=== PATIENT | male | born 2000 | race Caucasian/White ===

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

== ENCOUNTER 2021-02-18 14:51 | Emergency (ER) | payer MEDICAID, SELFPAY ==
[2021-02-18 14:54] VITALS: BP 153/77; PULSE 104; RESP 18; TEMP 36.9; O2SAT 99
--- NOTE | 2021-02-18 15:11 | W.ED.GENAD ---
Discharge Plan Disposition Patient Disposition: HOME Condition: Stable Discharge Details Clinical Impression: Systemic reaction to hymenoptera sting Primary Care Provider: Jayden Mobley ED Provider: Maxim Wild Home Meds and New Rx's Prescriptions: New epinephrine 0.3 mg/0.3 mL auto-injector 0.3 mg IM ONCE Qty: 1 RF: 0 prednisone 20 mg tablet 40 mg PO DAILY Qty: 8 RF: 0 Discharge Instructions Instructions: Insect Bite or Sting (ED), Anaphylaxis (ED) Additional Instructions: Please take Benadryl 25 mg every 8 hours for the next 2 days. Take prednisone as prescribed. Use epinephrine for severe allergic reaction in the future as prescribed. Please contact your primary care physician to arrange follow-up. Return to the ER for any worsening or new concerning symptoms. Referrals: Jayden Mobley MD [Primary Care Provider] - Discharge Data Discharge Date/Time-TO BE ENTERED AT DEPARTURE: 02/18/21 17:03 Medical Decision Making 1530 -- 20-year-old male here with hymenoptera sting from multiple wasps. He does feel dizzy and has some nausea. No vomiting. He saturating well no respiratory distress. No oropharyngeal swelling. Lungs clear to auscultation. He is mildly tachycardic but normotensive. Plan to give Solu-Medrol 125 mg IV, Benadryl 50 mg IV and IV fluid bolus to treat for systemic allergic reaction. Will monitor for improvement. --Patient reassessed after prolonged ED observation and noted significant improvement. Now asymptomatic. Plan customary discharge instructions reviewed with the patient. HPI General Mode of arrival: ambulatory. Date/Time Provider Initiated Documentation: 02/18/21 15:10. Limitations to Documentation: no limitations. Information obtained by: patient. HPI Narrative: 20-year-old male presents with chief complaint of bee sting. Patient notes he was stung in his face and upper extremities bilaterally as well as the back of his head. He states he was stung about 30 minutes prior to arrival. He has swelling in his left face. He notes he feels a little dizzy and generally unwell. He denies shortness of breath or difficulty swallowing. No oral swelling. He did feel little nauseous but has not vomited. Symptoms moderate with no modifiers. He has not tried antihistamine. He has been stung before and no known severe allergy. Related Data Home Medications Medication Instructions Recorded Confirmed epinephrine 0.3 mg IM ONCE #1 ea 02/18/21 prednisone 40 mg PO DAILY #8 tab 02/18/21 Previous Rx's Medication Instructions Recorded epinephrine 0.3 mg IM ONCE #1 ea 02/18/21 prednisone 40 mg PO DAILY #8 tab 02/18/21 Allergies Allergy/AdvReac Type Severity Reaction Status Date / Time No Known Allergies Allergy Unverified 02/18/21 14:58 General Stated Complaint: Allergic BISI: 3 Review of Systems All systems reviewed & are unremarkable except as noted in HPI and below Constitutional Constitutional: Denies fever(s) ENT Ears, Nose, Mouth, and Throat: Reports as per HPI Respiratory Respiratory: Reports as per HPI [facility] Medical History No significant past medical history Surgical History No significant past surgical history Social History Smoking/Tobacco Use Status: Never Smoking risk assessment performed?: Yes Alcohol Intake: never Drug use: Never Substance use type: does not use Do you feel safe at home: Yes Do you feel safe in your relationship?: Yes Exam Const General: cooperative and no acute distress HENMT Head: normocephalic and atraumatic Face and sinus: face asymmetric and other (Left facial swelling) Mouth: oral mucosae normal, lip normal, tongue normal, oropharynx normal, moist mucous membranes and no drooling Throat: posterior oropharynx normal and uvula midline Eyes Conjunctivae: normal conjunctivae Sclera: normal sclerae Neck Neck: trachea midline and supple Resp Auscultation: clear to auscultation bilaterally, no rales, no rhonchi and no wheezes Cardio Rate: tachycardic Rhythm: regular rhythm Heart Sounds: no murmurs GI Palpation: soft, not firm, no guarding, no masses, not rigid and nontender Skin General skin exam: no rashes or lesions noted Neuro General: patient alert, patient awake, patient oriented x3 and tone normal Extrem General: no edema Psych Appearance: grossly normal Mental Status: mental status grossly normal Speech and Movement: speech and movement normal Course Vital Signs Vital signs: Vital Signs Temperature 36.9 C 02/18/21 14:54 Pulse 104 H 02/18/21 14:54 Respiratory Rate 18 02/18/21 14:54 Blood Pressure 153/77 H 02/18/21 14:54 Pulse Oximetry 99 02/18/21 14:54 Temperature 36.9 C 02/18/21 14:54 Temperature Source Skin 02/18/21 14:54 Pulse 104 H 02/18/21 14:54 Respiratory Rate 18 02/18/21 14:54 Respiratory Effort 02/18/21 14:58 Blood Pressure 153/77 H 02/18/21 14:54 Blood Pressure Position Sitting 02/18/21 14:54 Pulse Oximetry 99 02/18/21 14:54 Oxygen Delivery Method Room Air 02/18/21 14:54 Oxygen Flow Rate 0 02/18/21 14:54 Pain Level 4 02/18/21 14:54
[2021-02-18] MEDS: methylPREDNISolone SUCC 125 MG VIAL IVP (15:26)
[2021-02-18] MEDS: Lactated Ringers 1,000 ML 1000 ML IV (15:26)
[2021-02-18] MEDS: diphenhydrAMINE 50 MG/ML VIAL IVP (15:26)
== END 2021-02-18 17:03 | disposition home or self-care (01) ==
PROVIDERS: Emergency Provider Student in an Organized Health Care Education/Training Program; PCP Internal Medicine
DX: T63.451A Toxic effect of venom of hornets, accidental (unintentional), initial encounter (principal); R42 Dizziness and giddiness; R11.0 Nausea; R22.0 Localized swelling, mass and lump, head
CPT/HCPCS: 96361; 96374; 96375; 99284; J1200; J2930

== ENCOUNTER 2021-06-23 14:04 | Outpatient (REF) | payer MEDICAID, SELFPAY ==
[2021-06-23 14:36] LABS: Abs Immature Grans 0.01 10^3/uL (0.0-0.06); Absolute Basophil Count 0.04 10^3/uL (0.0-0.2); Absolute Eosinophil Count 0.15 10^3/uL (0.0-0.7); Absolute Lymphocyte Count 2.15 10^3/uL (1.2-3.4); Absolute Monocyte Count 0.55 10^3/uL (0.1-0.8); Absolute Neutrophil Count 3.49 10^3/uL (1.2-6.7); Basophils % 0.6; Eosinophils % 2.3; HCT 46.8 % (40.0-50.0); HGB 16.1 g/dL (13.5-17.5); Immature Grans % 0.2; Lymphocytes % 33.6; MCHC 34.4 % (32.0-36.0); MCV 84.2 fL (80-95); MPV 11.8 fL (8.0-11.0); Monocytes % 8.6; Neutrophils % 54.7; Nucleated RBC 0 %; Platelet Count 229 10^3/uL (130-400); RBC 5.56 10^6/uL (4.36-5.78); RDW 12.2 % (11.8-14.1); RDW-SD 37.3 fL; WBC 6.39 10^3/uL (4.4-10.8)
[2021-06-23 15:14] LABS: Anion Gap 8.2 mmol/L (3-11); BUN 16 mg/dL (7-18); CO2 27.8 mmol/L (21.0-32.0); CREATININE 0.9 mg/dL (0.70-1.30); Calcium 9.8 mg/dL (8.5-10.1); Chloride 102 mmol/L (98-107); Glucose 101 mg/dL (74-106); Potassium 4.2 mmol/L (3.5-5.1); Sodium 138 mmol/L (136-145); Vitamin B12 718 pg/mL (193-986)
[2021-06-23 16:12] LABS: FREE T4 0.92 ng/dL (0.78-1.34)
== END 2021-06-23 14:05 | disposition home or self-care (01) ==
LOC: NCHCN 14:04
PROVIDERS: PCP Internal Medicine; Visit Provider Nurse Practitioner Family
DX: K30 Functional dyspepsia (principal); R05.8 Other specified cough; F41.8 Other specified anxiety disorders; R07.9 Chest pain, unspecified
CPT/HCPCS: 80048; 82607; 84439; 84443; 85025

== ENCOUNTER 2021-08-26 01:05 | Outpatient (RCR) | payer MEDICAID, SELFPAY ==
--- NOTE | 2021-08-26 16:00 | HOLTER_ITS ---
APPROVED REPORT Conclusion This is a 48-hour Holter monitor ordered for dizziness Predominant rhythm was sinus with an average heart rate of 81. Minimum was 53, maximum 137 A total of 28 isolated PVCs were seen There were 4 isolated atrial premature beats There was no atrial fibrillation, no high-grade AV block, no pauses greater than 3 seconds Patient symptoms of chest pain and shortness of breath were reported but not timed, unable to correla te
== END 2021-09-08 23:59 | disposition home or self-care (01) ==
LOC: RT 01:05
PROVIDERS: PCP Internal Medicine; Visit Provider Nurse Practitioner Family
DX: R42 Dizziness and giddiness (principal)
CPT/HCPCS: 93225; 93226

== ENCOUNTER 2021-09-22 08:20 | Outpatient (REF) | payer MEDICAID, SELFPAY ==
[2021-09-22 17:50] LABS: TSH (W/Ref FT4) 1.91 uIU/mL (0.52-4.13)
== END 2021-09-22 08:21 | disposition home or self-care (01) ==
LOC: NCHCN 08:20
PROVIDERS: PCP Internal Medicine; Visit Provider Nurse Practitioner Family
DX: E03.9 Hypothyroidism, unspecified (principal); R03.0 Elevated blood-pressure reading, without diagnosis of hypertension; R42 Dizziness and giddiness
CPT/HCPCS: 84443

== ENCOUNTER 2021-10-26 01:21 | Outpatient (CLI) | payer MEDICAID, SELFPAY ==
--- NOTE | 2021-10-26 07:30 | DI.US_ITS ---
APPROVED REPORT EXAM: Comprehensive 2D, Doppler, and color-flow Echocardiogram Patient Location: Out-Patient Replacer: Gloria Adams RDCS (AE) Indications: Dizziness, Systolic heart murmur Other Information Study Quality: Adequate Conclusion Normal left ventricular wall thickness and chamber size. Estimated ejection fraction is 55 to 60%. Wall motion is normal Normal right ventricular size and systolic function Both atria are normal in size There is no structural or hemodynamically significant valvular disease Normal estimated right ventricular systolic pressure, 14 mmHg Wall motion Left Ventricle The left ventricle is normal size. The left ventricular systolic function is normal. The left ventric ular ejection fraction is within the normal range. There is normal left ventricular wall thickness. T here is normal LV segmental wall motion. There is no ventricular septal defect visualized. LVEF is 58 %. Right Ventricle The right ventricle is normal size. The right ventricular systolic function is normal. The RVSP is 13 .9 mmHg. Atria The left atrium size is normal. The right atrium size is normal. The interatrial septum is intact wit h no evidence for an atrial septal defect. Aortic Valve The aortic valve is normal in structure. Aortic valve is trileaflet. There is no aortic valvular sten osis. No aortic regurgitation is present. Mitral Valve The mitral valve is normal in structure. No evidence of mitral valve stenosis. Trace mitral regurgita tion. Tricuspid Valve The tricuspid valve is normal in structure. There is no tricuspid valve stenosis. Trace to mild tricu spid regurgitation. Pulmonic Valve The pulmonary valve is normal in structure. There is no pulmonic valvular stenosis. Mild pulmonic reg urgitation. Great Vessels The aortic root is normal in size. The ascending aorta is normal in size. Aortic arch is normal in ca liber. IVC is normal in size and collapses >50% with inspiration. Pericardium There is no pericardial effusion. 2D Dimensions IVSD d PLAX 1.02 cm M: 0.6-1.2 LV Vol A2C d MOD 136.5 mL LVPW d PLAX 1.04 cm M: 0.6 - 1.2 LV Vol A4C d MOD 116.6 mL LVID d PLAX 5.20 cm M: 4.2 - 5.8 LA vol/ BSA A4C s A-L 16.7 mL/m2 LVDs 3.25 cm M: 2.5 - 4.0 LA Area A4C s MOD 13.51 cm2 Ao Root d 2.61 cm M: 3.1 - 3.7 LV EF A4C MOD 59.5 % RA Area A4C 11.29 cm2 LV EF A2C MOD 57.9 % RA Vol/ BSA A4C s A-L 13.5 mL/m2 LV EF Biplane MOD 57.3 % Ao Asc Diam d 2.33 cm M: 2.6 - 3.4 SV 72.68 mL LV EF Teichholz 66.5 % SV Index 37.15 mL/m2 LVEF (Morales's) 57.34 % M: 52 - 72 LV Volume 95.78 mL M: 62 - 150 LV Volume Index 49.11 mL/m2 M: 34 - 74 LV Vol Biplane MOD 126.8 mL FS 37.00 % M-Mode TAPSE 1.92 cm (M/F) >1.7 LV Diastology MV E' medial 0.127 (>0.07 m/s) E/A Ratio 1.3 LV E/e MED 5.75 (<14) MV E Vmax 0.73 (0.4-1.3 m/s) MV E' lateral 0.181 (>0.1 m/s) MV A Vmax 0.55 (0.4-1.3 m/s) LV E/e LAT 4.00 (<14) MV E/A Ratio 1.26 MV E/E' medial 5.75 MV E/E' lateral 4.04 Aortic Valve LVOT Area 3.61 cm2 AoV Area Vmax 2.98 cm2 LVOT Vmax 1.17 m/s AoV Area/ BSA (Vmax) 1.52 cm2/m2 LVOT Mean Jason. 0.76 m/s SARAH Mean Jason. 2.74 cm2 LVOT Peak Grad 5.5 mmHg SARAH Mean Jason. Index 1.40 cm2/m2 LVOT Mean Grad 2.7 mmHg LVOT VTI 0.202 m LVOT Diam s 2.10 cm AoV Vmax 1.42 m/s Velocity Ratio 0.82 AoV Mean Jason. 1.00 m/s AoV Peak Grad 8.1 mmHg LVOT SV 73.00 mL AoV Mean Grad 4.4 mmHg AoV VTI 0.228 m AoV Area VTI 3.20 cm2 AoV Area/ BSA (VTI) 1.64 cm/m2 Mitral Valve MV DT 209 (160-240 msec) MV PHT 60 msec MV Area PHT 3.64 cm2 MV VTI 0.272 m MV Area VTI 2.69 (4.0-6.0 cm2) Pulmonary Valve PV Vmax 1.45 (0.5-1.5 m/s) RVOT Peak Gr. 2.45 mmHg PV Peak Grad 8.5 mmHg RVOT Mean Gr. 1.50 mmHg PV Mean Grad 5.1 mmHg RVOT VTI 0.132 m PV VTI 0.257 m RVOT Vmax 0.78 m/s Tricuspid Valve TR Peak Grad 10.9 mmHg TR Vmax 1.65 m/s RA Pressure 3.00 mmHg RVSP (TR) 13.9 mmHg
--- NOTE | 2021-10-26 09:00 | DI.MRI_ITS ---
Exam(s) MR CERVICAL SPINE WO EXAM: MR CERVICAL SPINE WO CLINICAL HISTORY: SCOLIOSIS, M41.9, NECK PAIN, M54.2, PARESTHESIA MELLISSA LEGS, R20.2 TECHNIQUE: Multiplanar multisequence MRI of the cervical spine was performed without intravenous con trast. COMPARISON: No exams were available for comparison FINDINGS: CERVICOMEDULLARY JUNCTION: Intact with no evidence of cerebellar tonsillar ectopia. No obvious abnor mality of the odontoid process. No evidence of Chiari 1 malformation. CERVICAL SPINAL CORD: There is no abnormal signal in the cervical spinal cord and no evidence of foca l cord atrophy nor focal cord swelling. OSSEOUS:There are no cervical fractures evident. No significant osseous lesions in the cervical vert ebrae. INDIVIDUAL LEVELS: C2-3: No disc herniation nor central canal stenosis. No foraminal stenosis. No facet arthropathy. C3-4: No disc herniation nor central canal stenosis.No facet arthropathy. No foraminal stenosis. C4-5: No disc herniation nor central canal stenosis.No facet arthropathy. No foraminal stenosis C5-6: No disc herniation or central canal stenosis. No facet arthropathy. No foraminal stenosis. C6-7: No disc herniation or central canal stenosis. No facet arthropathy. No foraminal stenosis. C7-T1: No disc herniation nor central canal stenosis. No facet arthropathy.No foraminal stenosis. Incidentally noted on the sagittal images is what appears to be a disc protrusion at the T3-T4 level. This is below the lower most axial images. IMPRESSION: 1. No significant findings in the cervical spine. 2. However, there appears to be a disc protrusion at T3-4 level seen in the lower most aspect of the sagittal images. This low level was not included on the axial images. If clinically indicated thora cic MRI can be performed. DATA REPOSITORY:
--- NOTE | 2021-10-26 09:25 | DI.MRI_ITS ---
Exam(s) MR LUMBAR SPINE WO EXAM: MR LUMBAR SPINE WO CLINICAL HISTORY: SCOLIOSIS, M41.9, LOW BACK PAIN, M54.5, PARESTHESIA OF MELLISSA LEGS, R20.2. TECHNIQUE: Multiplanar multisequence MRI of the Lumbar spine was performed. COMPARISON: CR XR lumbar spine complete from 09/06/2018 FINDINGS: Plain films of August 2018 were reviewed. Conus medullaris is at normal level. There is no evidence of conus mass nor subjacent clumping of in trathecal nerve roots to suggest arachnoiditis. The distal thecal sac appears unremarkable.There is no evidence of Tarlov intrasacral cysts nor other significant findings within the sacral canal Bones:There are no fractures nor ominous osseous lesions in the lumbar vertebral bodies and visualize d sacrum. With respect to the individual levels... T12-L1: Unremarkable L1-2: Normal disc height and signal. No disc herniation nor central canal stenosis.No foraminal steno sis L2-3: Normal disc height. No disc herniation nor central canal stenosis.No foraminal stenosis.No face t arthropathy. L3-4: Relatively preserved disc height and signal. There is a lateral right disc protrusion at the l evel of the exiting right neural foramen. This is not contacting the exiting nerve root at this leve l, and there is minimal ipsilateral foraminal stenosis. No central canal stenosis. No foraminal navdeep nosis on the opposite-left side. L4-5: Relatively preserved disc height and signal. There is a central subligamentous small disc prot rusion which extends posteriorly 2 millimeters and is 10 millimeters wide and indents the anterior as pect of the thecal sac. Central canal dimensions are lower normal. There is no disc protrusion at t he level of the exiting neural foramina which are nicely patent. There is no significant foraminal s tenosis at this level. L5-S1: Relatively preserved disc height and signal. There is broad annular bulging at this level wit h 2 superimposed more focal disc protrusions. One of these is posterolateral right and extends poste riorly 4 millimeters and is approximately 1 cm wide. This extends into the floor of the exiting righ t neural foramen but does not appear to significantly impinge upon the exiting right nerve root in th e exiting right neural foramen. There is mild foraminal stenosis on this side. No facet arthropathy . The other smaller protrusion is posterolateral left, and does not extend appreciably into the exit ing left neural foramen. Left neural foramen exhibits minimal stenosis. There is mild central spina l canal stenosis and due to the above findings +short AP dimensions of the pedicles. There is no fac et arthropathy at this level nor ligamentum flavum hypertrophy. Soft tissues: paraspinal soft tissues appear unremarkable. IMPRESSION: 1. Multilevel disc protrusions evident at L3-4, L4-5, and L5-S1 levels, as described above. 2. There is no significant facet arthropathy nor significant ligamentum flavum hypertrophy. 3. No prominent foraminal stenosis. There is mild foraminal stenosis on the right side at L5-S1 leve l. DATA REPOSITORY:
== END 2021-10-26 01:41 ==
PROVIDERS: PCP Internal Medicine; Visit Provider Nurse Practitioner Family
DX: R42 Dizziness and giddiness (principal); R01.1 Cardiac murmur, unspecified
CPT/HCPCS: 72141; 72148; 93306

== ENCOUNTER 2022-06-21 01:49 | Outpatient (CLI) | payer MEDICAID, SELFPAY ==
--- NOTE | 2022-06-21 07:59 | DI.MRI_ITS ---
Exam(s) MR BRAIN WO EXAM: MR BRAIN WO CLINICAL HISTORY: ataxia, facial parethesias,bilat blurred vision,r20.2,h53.8,r27.0,g43.009 TECHNIQUE: Multiplanar multisequence MRI of the brain was performed. COMPARISON: CT CT HEAD CERVICAL SPINE WO from 11/27/2020 FINDINGS: VENTRICLES AND EXTRA AXIAL SPACES: Normal in size and morphology for the patient's age. MIDLINE SHIFT: None. CEREBRAL PARENCHYMA: No focus of restricted diffusion to suggest acute infarct. No space-occupying le deena identified. HEMORRHAGE: None. BRAINSTEM/CEREBELLUM: Normal. VISUALIZED PARANASAL SINUSES/MASTOIDS:Clear. [place]: Normal flow void. PITUITARY GLAND: Unremarkable. ORBITS: Unremarkable. IMPRESSION: Unremarkable MRI of the brain. DATA REPOSITORY:
== END 2022-06-21 02:09 ==
LOC: DI 01:49
PROVIDERS: PCP Nurse Practitioner Family; Visit Provider Nurse Practitioner Adult Health
DX: R20.2 Paresthesia of skin (principal); H53.8 Other visual disturbances; R27.0 Ataxia, unspecified; G43.009 Migraine without aura, not intractable, without status migrainosus
CPT/HCPCS: 70551

== ENCOUNTER 2022-09-07 13:04 | Outpatient (REF) | payer MEDICAID, SELFPAY ==
[2022-09-07 21:42] LABS: HCT 46.3 % (40.0-50.0); HGB 16.2 g/dL (13.5-17.5); MCH 29.4 pg (27.0-33.0); MCV 84 fL (80-95); MPV 11.9 fL (8.0-11.0); Platelet Count 224 10^3/uL (130-400); RBC 5.51 10^6/uL (4.36-5.78); RDW 12.1 % (11.8-14.1); WBC 5.98 10^3/uL (4.4-10.8)
[2022-09-07 22:30] LABS: ALT 79 U/L (16-63); AST 29 U/L (15-37); Albumin 4.7 g/dL (3.4-5.0); Alkaline Phosphatase 63 U/L (46-116); Anion Gap 5.1 mmol/L (3-11); BUN 15 mg/dL (7-18); Bilirubin, Total 0.4 mg/dL (0.2-1.0); CO2 30.9 mmol/L (21.0-32.0); Chloride 101 mmol/L (98-107); Glucose 91 mg/dL (74-106); Potassium 4.2 mmol/L (3.5-5.1); Sodium 137 mmol/L (136-145); Total Protein 7.8 g/dL (6.4-8.2); Vitamin B12 927 pg/mL (193-986)
[2022-09-07 22:38] LABS: C-Reactive Protein 0.06 mg/dL (0.0-0.3)
[2022-09-11 11:31] LABS: Lyme Ab w Rflx to Lyme Confirm Negative (Negative)
== END 2022-09-07 13:05 | disposition home or self-care (01) ==
LOC: NCHCN 13:04
PROVIDERS: PCP Nurse Practitioner Family; Visit Provider Family Medicine
DX: R42 Dizziness and giddiness (principal); R20.2 Paresthesia of skin; R03.0 Elevated blood-pressure reading, without diagnosis of hypertension; E03.9 Hypothyroidism, unspecified; R00.2 Palpitations; R51.9 Headache, unspecified
CPT/HCPCS: 80053; 85027; 82607; 86140; 86618

== ENCOUNTER 2025-04-23 09:37 | Outpatient (REF) | payer OTHER, SELFPAY ==
[2025-04-23 17:09] LABS: Glucose Negative (Negative)
[2025-04-23 17:51] LABS: Hemoglobin A1C 5.3 % (<5.7)
[2025-04-23 18:00] LABS: TSH (W/Ref FT4) 2.33 uIU/mL (0.55-4.78)
[2025-04-23 18:08] LABS: ALT 50 U/L (10-49); AST 27 U/L (<34); Albumin 4.7 g/dL (3.4-5.0); Alkaline Phosphatase 58 U/L (46-116); Anion Gap 8.2 mmol/L (3-11); BUN 16 mg/dL (9-23); Bilirubin, Total 0.50 mg/dL (0.2-1.2); CO2 27.8 mmol/L (20.0-31.0); Calcium 9.9 mg/dL (8.3-10.6); Chloride 106 mmol/L (98-107); Cholesterol 144 mg/dL (<200); Glucose 102 mg/dL (74-106); HDL Cholesterol 43 mg/dL (>40); Potassium 4.0 mmol/L (3.5-5.1); Sodium 142 mmol/L (136-145); Total Protein 7.4 g/dL (5.7-8.2)
[2025-04-23 18:11] LABS: Microalb ug/mg Crea 4.9 ug/mg Cr
[2025-04-23 23:11] LABS: HIV-1/2 Ag & Ab Screen Negative (Negative)
== END 2025-04-23 09:38 | disposition home or self-care (01) ==
LOC: NCHCN 09:37
PROVIDERS: PCP Nurse Practitioner Family; Visit Provider Nurse Practitioner Family
DX: I10 Essential (primary) hypertension (principal); Z83.3 Family history of diabetes mellitus; Z11.4 Encounter for screening for human immunodeficiency virus [HIV]; E03.9 Hypothyroidism, unspecified; Z11.59 Encounter for screening for other viral diseases; F90.9 Attention-deficit hyperactivity disorder, unspecified type
CPT/HCPCS: 80053; 80061; 87389; 87522; 81003; 82043; 82570; 83036; 84443

== ENCOUNTER → 2025-05-04 02:05 | Outpatient (CLI) | payer OTHER, SELFPAY ==
--- NOTE | 2025-05-04 | ETT_ITS ---
APPROVED REPORT Exam: Exercise Treadmill Patient Location: Out-Patient Room/Bed: Stress Nurse: Pippa Lucio RN Ordering Provider:CYNDY GASTON, Contact Number: [phone] BMI: 35.34 Baseline Rhythm: Sinus Rhythm Indications: chest pain Medical History Medical History: HTN, intermittent explosive disorder, heart murmur, ADHD, anxiety, amnesia, hypothyroid, low back pain Cardiac Medications: epi-pen, melatonin Allergies: bee venom protein Cardiac Risk Factors: family hx, htn, Previous Cardiac Procedures: n/a Pretest Chest Pain Characteristics: No chest pain Exercise History: Indeterminate Physical Disabilities: n/a Lung Sounds: Clear to auscultation Heart Sounds: Regular Stress Test Details Test: Exercise stress testing was performed using a Chencho protocol. Rest Stress HR Resting HR Supine: 86 bpm Max Heart Rate (APMHR): 197 bpm Resting HR Standin bpm Target HR (85% APMHR): 167 bpm Max HR Achieved: 174 bpm % of APMHR: 88 Recovery HR: 86 bpm HR response to stress: Normal HR response to stress BP Resting BP Supine: 146/90 mmHg Resting BP Standin/90 mmHg Max BP: 180/86 mmHg Recovery BP: 140/70 mmHg BP response to stress: Normal blood pressure response to stress. ECG Resting ECG: Sinus Rhythm Ectopy: rare PAC Stress ECG: Sinus Tachycardia Maximum ST Deviation: 1 mm Arrhythmia: None Recovery ECG: Sinus Rhythm Recovery ST Change: Recovery ST Deviation: 1 mm Recovery Arrhythmia: None Clinical Reason for Termination: Target HR Achieved Stress Symptoms: Chest pain Exercise duration: 10 min01 sec Highest Stage Reached: Stage 4: 4.2 mph at 16% grade. Exercise capacity: 11.81 METs Rate Pressure Product: [id number] Stress ECG Conclusion 1. Resting electrocardiogram was normal 2. Patient exercised on the Chen[place] protocol completed workload of 12 METS 3. Normal heart rate and blood pressure response to exercise. The patient achieved 88% of maximal predicted heart rate for age 4. There was no electrocardiographic evidence of myocardial ischemia 5. There were no significant dysrhythmias Stress Test Summary STAGE Time (mins) Speed (mph) Grade (%) HR BP SpO2 SYMPTOMS METS Supine 86 146/90 96 Standing 92 150/90 1 3 1.7 10 113 160/90 96 4.5 2 6 2.5 12 129 170/86 2/10 chest pain 7 3 9 3.4 14 150 180/86 96 3/10 chest pain 10 1 min recovery 136 180/86 96 3 min recovery 99 150/70 97 1/10 chest pain 6 min recovery 101 140/70 Test stopped due to pt request after meeting target HR. Pt c/o mild chest pain while exercising, all symptoms resolved by test end. Pt left ambulatory in no acute distress.
== END ==
PROVIDERS: PCP Nurse Practitioner Family; Visit Provider Nurse Practitioner Family
DX: R07.9 Chest pain, unspecified (principal)
CPT/HCPCS: 93017

== ENCOUNTER 2025-05-15 14:04 | Outpatient (CLI) | payer OTHER, SELFPAY ==
--- NOTE | 2025-06-09 12:48 | W.CARDEVENT ---
Date of service: 06/09/25 Time of Service: 12:48 Cardiac Event Recorder Referring Provider:: Kinza Zhu Indications:: Dizziness and chest pain Cardiac Event Note: This is a cardiac event monitor. Patient was monitored for 11 days and 21 hours Rhythm throughout was sinus with an average heart rate of 75. Minimum was 37, maximum 178 There were very rare isolated atrial and ventricular ectopic beats There was no atrial fibrillation, no SVT, no high-grade AV block, no pauses greater than 2 seconds. Symptoms were reported which correlated to sinus rhythm rate 66
== END 2025-05-15 14:05 | disposition home or self-care (01) ==
PROVIDERS: PCP Nurse Practitioner Family; Visit Provider Nurse Practitioner Family
DX: R07.9 Chest pain, unspecified (principal); R42 Dizziness and giddiness
CPT/HCPCS: 93246